=== PATIENT | male | born 1985 | race Caucasian/White ===

== ENCOUNTER 2019-01-01 09:24 | Emergency (ER) | payer OTHER ==
[~2019-01-01] VITALS: Ht 185.4 cm; Wt 95.3 kg
[2019-01-01] MEDS ORDERED: PROTONIX40 M1 PO (09:48)
[2019-01-01 10:07] LABS: ABSOLUTE EOSINOPHILS 0.1 thou/uL (0.0-0.7); ABSOLUTE LYMPHOCYTES 0.7 thou/uL (0.8-5.3); ABSOLUTE MONOCYTES 1.2 thou/uL (0.0-1.2); ABSOLUTE NEUTROPHILS 5.1 thou/uL (1.6-8.1); BASOPHILS 0.3 %; EOSINOPHILS 1.5 %; HEMOGLOBIN 16.1 gm/dL (14.0-18.0); LYMPHOCYTES 10.1 %; MCHC 34.2 g/dL (28.0-37.0); MCV 87.7 fL (80.0-100.0); MONOCYTES 16.9 %; MPV 9.5 fl. (7.2-11.1); NUCLEATED RBCS 0 /100WBC; PLATELET COUNT* 194 thou/uL (150-400); POLYS 71.2 %; RBC 5.36 mil/uL (4.50-6.00); RDW-CV 13.4 % (10.5-14.5); WBC 7.2 thou/uL (4.0-11.0)
[2019-01-01 10:12] LABS: CALCIUM 9.4 mg/dL (8.5-10.1); CREATININE 1.1 mg/dL (0.6-1.3); POTASSIUM 3.5 mmol/L (3.5-5.1)
[2019-01-01 10:17] LABS: ALBUMIN 3.6 g/dL (3.4-5.0); TOTAL BILIRUBIN 0.4 mg/dL (<0.1-1.0); TOTAL PROTEIN 7.4 g/dL (6.4-8.2)
[2019-01-01] MEDS ORDERED: LOMOTIL TABLET1 EACH PO (10:23)
[2019-01-01 11:07] VITALS: BP 155/55
== END 2019-01-01 11:09 | disposition home or self-care (01) ==
LOC: M.ERS 09:24
PROVIDERS: Emergency Medicine
DX: R19.7 Diarrhea, unspecified (principal)